=== PATIENT | female | born 2000 ===

== ENCOUNTER 2018-11-14 05:15 | Day surgery (SDC) | payer MEDICAID ==
[2018-11-13 11:25] LABS: HEMATOCRIT 39.8 % (36.0-48.0); HEMOGLOBIN 13.2 g/dL (12-16); MCHC 33.2 g/dL (31.0-37.0); MCV 78.3 fL (80.0-100.0); MEAN PLATELET VOLUME 9.7 fL (7.4-10.4); RBC 5.08 10x6/uL (4.00-5.40); RDW 15.4 % (11.5-14.5); WBC 10.3 10x3/uL (4.8-10.8)
[~2018-11-14] VITALS: Ht 160 cm; Wt 73.9 kg
--- NOTE | ~2018-11-14 | OP ---
PATIENT NAME: DARA FERRIS MEDICAL RECORD: [id number] :98 LOCATION:[facility] ADMISSION DATE: SURGEON: JOSE VILLATORO MD DATE OF OPERATION: 11/14/2018 PREOPERATIVE DIAGNOSES: Disc herniation, L5-S1, left with left S1 radiculopathy. POSTOPERATIVE DIAGNOSES: Disc herniation, L5-S1, left with left S1 radiculopathy. SURGEON: Jose Villatoro MD REFERRING PHYSICIAN: Dr. Shepherd PROCEDURES: Lumbar laminotomy, medial facetectomy and foraminotomy with discectomy L5-S1 on the left. DESCRIPTION AND TECHNIQUE: After induction of general endotracheal anesthesia, the patient was rolled prone on a Jack frame. Lumbar spine was prepped and draped in the usual sterile fashion. Fluoroscopic x-ray and spinal needle localized the L5-S1 interspace on the left side. A stab incision was created with a #11 blade and series of dilators was advanced to the L5-S1 interspace on the left side. The level was confirmed with fluoroscopic x-ray. A microscope and Midas Chucho drill were used to perform laminotomy, medial facetectomy, foraminotomy at L5-S1 on the left. Hypertrophied ligamentum flavum was removed with Cloward rongeurs. Longus S1 nerve root was identified and appeared to be draped over a disc protrusion at L5-S1 on the left. The disc space was incised and disc material was removed with pituitary rongeurs. Following this, the S1 nerve root was decompressed well. Meticulous hemostasis was maintained throughout the wound. The wound was irrigated with copious amounts of Ancef irrigant solution. The retractor was removed. The fascia was closed with 2-0 Vicryl suture, the subdermal layer was closed with 3-0 Vicryl suture. The skin was reapproximated with anneliese. A sterile dressing was applied to the wound. The patient was awakened in good condition and taken to recovery. All counts were reported as correct. Estimated blood loss was minimal. TRANSINT:[id number] Voice Confirmation ID: [id number] DOCUMENT ID: [id number] JOSE VILLATORO MD CC: [id number] DICTATION DATE: 11/27/18 1119 DIRECT SERVICE PROVIDER: 11/27/18 1329 [facility] 11/14/18 [place] [address]
[~2018-11-14 05:15] MED LIST: ALBUTEROL SULF8.5 GM INH; QVAR REDIHALE10.6 G1 INH
[2018-11-14 06:11] VITALS: BP 112/73; Ht 160 cm; Wt 73.9 kg
[2018-11-14 06:22] LABS: HCG URINE NEGATIVE (NEGATIVE)
--- NOTE | 2018-11-14 06:32 | NUR ---
ANTISEPTIC NASAL SWABS POVIDONE-IODINE CUSTODIAL 10% WERE USED ON PT APPROPRIATELY
--- NOTE | 2018-11-14 10:59 | NUR ---
1057 1 NORCO 10/325MG PO FOR SHARP BACK PAIN RANKED 4/10. EATING FULL LIQUID DIET. PARENTS @ BEDSIDE. Kitty CHOWDHURY R.N.
--- NOTE | 2018-11-14 11:57 | NUR ---
POST OP INSTRUCTIONS GIVEN AND REVIEWED WITH PT AND FAMILY, RX GIVEN
--- NOTE | 2018-11-14 13:45 | NUR ---
1230 GIVEN DISCHARGE INSTRUCTIONS EARLIER BY Vamsi MORENO R.N. TO PRIVATE CAR PER WHEELCHAIR. HOME WITH PARENTS. Kitty CHOWDHURY R.N.
== END 2018-11-14 12:30 | disposition home or self-care (01) ==
LOC: D.OPS 05:15 → D.PAN 07:30 → D.OPS 07:30
PROVIDERS: Anesthesiology; ATTEND Neurological Surgery
DX: M51.26 Other intervertebral disc displacement, lumbar region (principal)